=== PATIENT | male | born 1945 | race Caucasian/White ===

== ENCOUNTER → 2017-04-01 | Outpatient (REF) | payer MEDICARE | LOC: M SFHCPLAZ 10:39 | PROVIDERS: ATTEND Nurse Practitioner Family | DX: R97.20 Elevated prostate specific antigen [PSA] (principal); M10.9 Gout, unspecified; E78.5 Hyperlipidemia, unspecified ==

== ENCOUNTER → 2017-05-27 | Outpatient (REF) | payer MEDICARE ==
[2017-05-27 13:50] LABS: ANION GAP 5 MEQ/L (8-16); BLOOD UREA NITROGEN 21 MG/DL (7-18); CARBON DIOXIDE LEVEL 30 MEQ/L (21-32); CHLORIDE LEVEL 104 MEQ/L (98-107); CREATININE FOR GFR 1.14 MG/DL (0.70-1.30); GLOMERULAR FILTRATION RATE > 60.0 (>42); GLUCOSE, FASTING 85 MG/DL (83-110); SODIUM LEVEL 139 MEQ/L (136-145)
== END ==
LOC: M SFHCPLAZ 10:54
PROVIDERS: ATTEND Family Medicine
DX: R49.9 Unspecified voice and resonance disorder (principal)

== ENCOUNTER → 2017-05-29 | Outpatient (CLI) | payer MEDICARE ==
--- NOTE | 2017-05-29 12:09 | REP ---
MRI NECK WITHOUT AND WITH CONTRAST: HISTORY: Dysphagia. CONTRAST: ProHance 17 mL. The examination is limited secondary to motion. There is enlargement of the left tonsil. There is minimal mass effect on the upper oropharynx. The naso- and hypopharynx, larynx, and subglottic trachea are otherwise normal in appearance. There is no definite vocal cord lesion. The salivary and thyroid glands are normal in size and signal intensity. Small lymph nodes less than 1 cm in size are present in the internal jugular chains, posterior triangles, submandibular and submental areas. The visualized maxillary sinus is clear. IMPRESSION: Limited examination demonstrating enlargement of the left tonsil with minimal mass effect on the upper oropharynx. Signed by Mariano Beaver MD 05/29/2017 12:13 P
== END ==
LOC: M RAD 09:52
PROVIDERS: ATTEND Family Medicine
DX: J35.1 Hypertrophy of tonsils (principal); R49.9 Unspecified voice and resonance disorder
CPT/HCPCS: 70543; A9576